=== PATIENT | male | born 1990 | race Caucasian/White ===

== ENCOUNTER 2023-05-17 22:50 | Emergency (ER) | payer OTHER ==
[~2023-05-17] VITALS: Ht 172.7 cm; Wt 70.3 kg
--- NOTE | 2023-05-17 23:03 | NUR ---
BIBS FOR R RIB PAIN S/P TRAUMA LAST WEEK. PLACED ON BED.
--- NOTE | 2023-05-17 23:41 | NUR ---
OUTSIDE SALES EXECUTIVE AT BEDSIDE.
--- NOTE | 2023-05-18 01:23 | NUR ---
PT OK TO DISCHARGE PER DR VENEGAS. Patient discharged to home in stable condition. Written and verbal after care instructions given. Patient verbalizes understanding of instruction.Patient is awake and alert to self, day, and place. PT ambulatory with a steady gait
[2023-05-18 02:36] VITALS: BP 118/79; TEMP 98.1; O2SAT 100
== END 2023-05-18 02:37 | disposition home or self-care (01) ==
LOC: ER 22:50
DX: S29.9XXA Unspecified injury of thorax, initial encounter (principal); W18.30XA Fall on same level, unspecified, initial encounter; Y93.89 Activity, other specified; Y92.89 Other specified places as the place of occurrence of the external cause; Y99.8 Other external cause status
CPT/HCPCS: 71100-TC